=== PATIENT | male | born 1965 | race Two or more races ===

== ENCOUNTER 2024-02-29 21:15 | Emergency (ER) | payer MEDICAID, OTHER ==
[~2024-02-29] VITALS: Ht 182.9 cm; Wt 140.6 kg
[2024-02-29 21:45] VITALS: PULSE 89; RESP 36; TEMP 97.8; O2SAT 92
[2024-02-29 23:00] LABS: Basophils # (auto) 0 10 ^3/uL (0-0.2); Basophils % (auto) 0.8 % (0.0-2.0); Eosinophils # (auto) 0 10 ^3/uL (0-0.8); Eosinophils % (auto) 0.8 % (0.0-7.0); Hematocrit 40.9 % (41.0-53.0); Hemoglobin 13.1 g/dL (13.5-17.5); Lymphocytes # (auto) 1.6 10 ^3/uL (0.4-5.4); Lymphocytes % (auto) 29.1 % (10.0-50.0); Mean Corpuscular Hemoglobin 29.9 pg (28.0-32.0); Mean Corpuscular Volume 93.4 fL (80.0-100.0); Monocytes # (auto) 0.5 10 ^3/uL (0-1.3); Monocytes % (auto) 8.8 % (0.0-12.0); Neutrophils # (auto) 3.4 10 ^3/uL (1.6-8.6); Neutrophils % (auto) 60.5 % (37.0-80.0); Nucleated Red Blood Cells % 0.1 %; Red Blood Cells 4.38 10^6/uL (4.5-5.90); Red Cell Distribution Width 14.9 % (11.8-14.3); White Blood Cell 5.6 10^3/uL (4.4-10.8)
[2024-02-29 23:09] LABS: Chloride 106 mmol/L (98-107); Potassium 4.2 mmol/L (3.5-5.1); Sodium 140 mmol/L (136-145)
[2024-02-29 23:10] LABS: Anion Gap 4 (5-15); Calcium 10.5 mg/dL (8.7-10.4); Carbon Dioxide 30 mmol/L (20-30)
[2024-02-29 23:15] LABS: BUN/Creatinine Ratio 8.5 (10.0-20.0); Blood Urea Nitrogen 8 mg/dL (9-23); Glucose 110 mg/dL (74-106)
[2024-03-01] MEDS: IOHEXOL 350 MG/ML 100ML IJ ONE (00:34)
[2024-03-01] MEDS: HYDROcodone-ACET 10/325MG TAB PO ONE (04:21)
[2024-03-01 07:20] VITALS: PULSE 81; RESP 20; O2SAT 94
[2024-03-01 10:00] VITALS: BP 138/83; PULSE 105; RESP 24; O2SAT 94
== END 2024-03-01 11:00 | disposition home or self-care (01) ==
LOC: ER 21:15 → EDBD 21:15 → ER 03-01 11:00
DX: R06.00 Dyspnea, unspecified (principal); I11.0 Hypertensive heart disease with heart failure; I50.9 Heart failure, unspecified; J44.9 Chronic obstructive pulmonary disease, unspecified; E11.9 Type 2 diabetes mellitus without complications; E78.5 Hyperlipidemia, unspecified; I25.2 Old myocardial infarction; Z88.5 Allergy status to narcotic agent; Z86.16 Personal history of COVID-19
CPT/HCPCS: 36415; 71045; 71275; 80048; 83880; 84484; 85025; 85379; 93005; 99285; Q9967

== ENCOUNTER 2025-03-02 12:52 | Emergency (ER) | payer MEDICAID ==
--- NOTE | 2025-03-02 13:52 | DVH ---
CLINICAL INDICATION: INJURY TO THUMB TECHNIQUE: XY R HAND 3 VIEW XRAY Comparison: None FINDINGS/IMPRESSION: 1. No acute fracture or dislocation of the right hand. 2. Old healed fracture of the right 5th metacarpal neck. 3. 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 4. 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
[2025-03-02 14:27] VITALS: BP 98/65; PULSE 89; RESP 18; TEMP 98.2; O2SAT 94
--- NOTE | 2025-03-02 14:41 | ED.PDOC ---
Musculoskeletal HPI Comments 59-year-old male presents with a chief complaint of right thumb pain s/p fall last night. Patient states that he fell while in the shower and injured his right thumb. Patient is able to move his thumb, but states that it is painful to do so. Patient reports that he has been taking ibuprofen at home for the pain and has been taking 300mg tablets. Chief Complaint: Upper Extremity Time Seen by MD: 13:21 Reviewed Notes: Nurses Notes, Medications, Allergies Allergies: Coded Allergies: Morphine (Verified Allergy, Unknown, 02/29/24) Information Source: Patient Past Medical History PAST MEDICAL HISTORY: CHF, COPD, DM, High Lipids, HTN, [place] Surgical History: Denies all surgeries Family History Family History: Unknown Social History Smoker: Non-Smoker Alcohol: Denies ETOH Use Drugs: Denies Drug Use Lives In: Home Constitutional: denies: chills, diaphoresis, fatigue, fever, malaise, sweats, weakness, others EENTM: denies: blurred vision, double vision, ear bleeding, ear discharge, ear drainage, ear pain, ear ringing, eye pain, eye redness, hearing loss, mouth pain, mouth swelling, nasal discharge, nose bleeding, nose congestion, nose pain, photophobia, tearing, throat pain, throat swelling, voice changes, others Respiratory: denies: cough, hemoptysis, orthopnea, SOB at rest, shortness of breath, SOB with excertion, stridor, wheezing, others Cardiovascular: denies: chest pain, dizzy spells, diaphoresis, Dyspnea on exertion, edema, irregular heart beat, left arm pain, lightheadedness, palpitations, PND, syncope, others Gastrointestinal: denies: abdomen distended, abdominal pain, blood streaked bowels, constipated, diarrhea, dysphagia, difficulty swallowing, hematemesis, melena, nausea, poor appetite, poor fluid intake, rectal bleeding, rectal pain, vomiting, others Genitourinary: denies: burning, dysuria, flank pain, frequency, hematuria, incontinence, penile discharge, penile sore, pain, testicle pain, testicle swelling, urgency, others Neurological: denies: dizziness, fainting, headache, left sided numbness, left sided weakness, numbness, paresthesia, pre-existing deficit, right sided numbness, right sided weakness, seizure, speech problems, tingling, tremors, weakness, others Musculoskeletal: reports: muscle pain; denies: back pain, gout, joint pain, joint swelling, muscle stiffness, neck pain, others Integumetry: denies: bruises, change in color, change in hair/nails, dryness, laceration, lesions, lumps, rash, wounds, others Allergic/Immunocompromised: denies: Difficulty Healing, Frequent Infections, Hives, Itching, others Hematologic/Lymphatic: denies: anemia, blood clots, easy bleeding, easy bruising, swollen glands, others Endocrine: denies: excessive hunger, excessive sweating, excessive thirst, excessive urination, flushing, intolerance to cold, intolerance to heat, unexplained weight gain, unexplained weight loss, others Psychiatric: denies: anxiety, bipolar disorder, depression, hopeless, panic disorder, schizophrenia, sleepless, suicidal, others All Other Systems: Reviewed and Negative Physical Exam General Appearance: No Apparent Distress, Normal HEENT: Normal ENT Inspection, Pharynx Normal, TMs Normal Neck: Full Range of Motion, Non-Tender, Normal, Normal Inspection Respiratory: Chest Non-Tender, Lungs Clear, No Accessory Muscle Use, No Respiratory Distress, Normal Breath Sounds Cardiovascular: No Edema, No JVD, No Murmur, No Gallop, Normal Peripheral Pulses, Regular Rate/Rhythm Breast Exam: Deferred Gastrointestinal: No Organomegaly, Non Tender, No Pulsatile Mass, Normal Bowel Sounds, Soft Genitalia: Deferred Pelvic: Deferred Rectal: Deferred Extremities: No calf tenderness, Normal capillary refill, Normal inspection, Normal range of motion, No pedal edema, Other (NO DEFORMITY, LOCALIZED TTP TO 1ST MCP, FULL ROM, NEUROVASCULARLY INTACT) Musculoskeletal : Apperance: Normal Neurologic: Alert, label operator II-XII nml as Tested, No Motor Deficits, Normal Affect, Normal Mood, No Sensory Deficits Cerebellar Function: Normal Reflexes: Normal Skin: Dry, Normal Color, Warm Lymphatic: No Adenopathy Was a procedure done? Was a procedure done?: No Differential Diagnosis EXT Differential Diagnosis: Fracture, Sprain, Dislocation X-Ray, Labs, Meds, VS Vital Signs Date Time Temp Pulse Resp B/P (MAP) Pulse Ox O2 Delivery O2 Flow Rate FiO2 03/02/25 14:27 89 18 94 Room Air 03/02/25 14:27 98.2 89 18 98/65 (69) 94 98.2 Current Medications Medications (Trade) Dose Ordered Sig/Carrie Route Start Time Stop Time Status Last Admin Ketorolac Tromethamine (Toradol Injection) 60 mg ONCE ONCE IM 03/02/25 14:45 03/02/25 14:46 DC 03/02/25 15:03 X-Ray, Labs, Meds, VS Comment 59-year-old male presents with a chief complaint of right thumb pain s/p fall last night. Patient arrives alert and oriented, ABC's intact, afebrile, vital signs stable, saturating well in room air Diagnostic imaging ordered by me and results interpreted by radiology : Results negative for an acute fracture. There was no signs of arterial nerve damage. Neurovascular sensation intact. Radial pulses 2+ In the ER the patient was treated with Toradol x1 with no adverse reactions On reevaluation, patient had symptomatic improvement. Patient is stable for discharge at this time. External notes reviewed. Test results and diagnostic imaging interpreted. All diagnostic findings, discharge care, education and instructions provided Follow-up with PCP in 2 to 3 days Patient verbalized understanding and agreed to treatment plan Vital signs stable, afebrile, no acute distress noted Patient ambulatory with strong steady gait Advised to return precautions for any new or worsening symptoms, return to ER immediately for re-evaluation Patient is aware that the purpose of this visit was for an acute medical emergency requiring emergent stabilization. Chronic conditions, including malignancies have not been ruled out. Patient is instructed to follow up with PCP as directed and discharge instructions for continued care and workup. If unable to arrange follow-up, patient is to return to the emergency department for reassessment. Patient (parent or legal guardian if applicable) was given verbal and written discharge instructions and acknowledges understanding. Additional MDM Review of External, Non-ED records: External records reviewed. Discussion with independent historian (EMS, family) history obtained from the patient/parents (if applicable) at bedside Chronic conditions affecting care: None Social determinants of health affecting care: None Consideration of admission (observation or admission): I considered escalation of care to admission for this patient, however given the reassuring workup, the patient is safe for outpatient management. Time of 1ST Reevaluation: 14:40 Reevaluation 1ST: Improved Patient Education/Counseling: Diagnosis, Treatment, Prognosis Family Education/Counseling: No Family Present Departure 1 Departure Time of Disposition: 14:40 Impression: Primary Impression: Hand pain Qualified Codes: M79.641 - Pain in right hand Disposition: HOME / SELF CARE / HOMELESS Condition: Stable Discharged With: Self Critical Care Note Critical Care Time?: No Stability Stability form required: No Heart Score Heart Score: Heart Score Response (Comments) Value History N/A 0 EKG N/A 0 Age N/A 0 Risk Factors N/A 0 Troponin N/A 0 Total 0 I personally scribed for SANNA GOMES NP ([email or web address]) on 03/02/25 at 14:51. Hallie ctronically submitted by Javier Bradshaw ([email or web address]). SANNA GOMES NP Mar 02, 2025 14:41
[2025-03-02] MEDS: KETOROLAC TROMETH 60MG/2ML VIAL IM ONE (15:03)
== END 2025-03-02 15:03 | disposition home or self-care (01) ==
LOC: ER 12:52
DX: M79.641 Pain in right hand (principal); M79.644 Pain in right finger(s); I50.9 Heart failure, unspecified; I25.2 Old myocardial infarction; I11.0 Hypertensive heart disease with heart failure; E11.9 Type 2 diabetes mellitus without complications; J44.9 Chronic obstructive pulmonary disease, unspecified; E78.5 Hyperlipidemia, unspecified; Z88.5 Allergy status to narcotic agent
CPT/HCPCS: 73130; 96372; 99283; J1885

== ENCOUNTER 2025-04-05 13:05 | Inpatient (IN) | payer MEDICAID ==
[~2025-04-05] VITALS: Ht 172.7 cm; Wt 140.5 kg
--- NOTE | 2025-04-05 13:34 | ED.PDOC ---
General HPI Comments 59 y.o male with PMHx of DM, MIx 3, HTN, HLD, sleep apnea, CHF, seizures and stage 3 CKD, presents to the ED via EMS for a chief complaint of suprapubic pain radiating down, associated with excessive thirst, dysuria and frequency. Patient describes pain as a burning sensation that is constant with no alleviating factors. Patient denies any hematuria, fever, chills, weakness, chest pain, nausea, vomiting or diarrhea. Time Seen by MD: 13:28 Reviewed notes: Nurses Notes, Medications, Allergies Allergies: Coded Allergies: Morphine (Verified Allergy, Unknown, 02/29/24) Home Meds Reported Medications Omeprazole Magnesium (Omeprazole) 20 Mg Tab, 20 MG PO DAILY, TAB 04/05/25 Amlodipine Besylate (Amlodipine Besylate) 10 Mg Tab, 1 TAB PO DAILY, #30 TAB 5 Refills 04/05/25 Metoprolol Tartrate (Metoprolol Tartrate) 50 Mg Tab, 50 MG PO DAILY, TAB 04/05/25 Lisinopril (Lisinopril) 10 Mg Tab, 10 MG PO DAILY, TAB 04/05/25 Sertraline Hcl (Sertraline Hcl) 100 Mg Tab, 1 TAB PO DAILY, #90 TAB 1 Refill 04/05/25 Canagliflozin (INVOKANA) 300 Mg Tab, 300 MG OR DAILY, TAB 04/05/25 Furosemide (Lasix) 20 Mg Tb, 1 TAB PO DAILY, #90 TAB 1 Refill 04/05/25 Gabapentin (Gabapentin) 300 Mg Cap, 1 CAP PO TID 04/05/25 Aspirin (Aspirin Low Dose) 81 Mg Tab, 1 TAB PO DAILY 04/05/25 Atorvastatin Calcium (ATORVASTATIN CALCIUM) 40 Mg Tab, 1 TAB PO HS 04/05/25 Information Source: Patient Mode of Arrival: Ambulatory Severity: Moderate Timing: Days Duration: Since onset Onset: Spontaneous Symptoms: Dysuria, Frequency, Urgency History of: None Location: Suprapubic Location male: R Scrotum, L Scrotum Penile discharge: None Modifying factors: None associated signs and symptoms: Abdominal Pain, Dysuria, Frequency Past Medical History PAST MEDICAL HISTORY: CHF, COPD, DM, High Lipids, HTN, [place] Surgical History: Denies all surgeries Family History Family History: Unknown Social History Smoker: Non-Smoker Alcohol: Denies ETOH Use Drugs: Denies Drug Use Lives In: Home Constitutional: denies: chills, diaphoresis, fatigue, fever, malaise, sweats, weakness, others EENTM: denies: blurred vision, double vision, ear bleeding, ear discharge, ear drainage, ear pain, ear ringing, eye pain, eye redness, hearing loss, mouth pain, mouth swelling, nasal discharge, nose bleeding, nose congestion, nose pain, photophobia, tearing, throat pain, throat swelling, voice changes, others Respiratory: denies: cough, hemoptysis, orthopnea, SOB at rest, shortness of breath, SOB with excertion, stridor, wheezing, others Cardiovascular: denies: chest pain, dizzy spells, diaphoresis, Dyspnea on exertion, edema, irregular heart beat, left arm pain, lightheadedness, palpitations, PND, syncope, others Gastrointestinal: reports: abdominal pain; denies: abdomen distended, blood streaked bowels, constipated, diarrhea, dysphagia, difficulty swallowing, hematemesis, melena, nausea, poor appetite, poor fluid intake, rectal bleeding, rectal pain, vomiting, others Genitourinary: reports: burning, dysuria, frequency, pain; denies: flank pain, hematuria, incontinence, penile discharge, penile sore, testicle pain, testicle swelling, urgency, others Neurological: denies: dizziness, fainting, headache, left sided numbness, left sided weakness, numbness, paresthesia, pre-existing deficit, right sided numbness, right sided weakness, seizure, speech problems, tingling, tremors, weakness, others Musculoskeletal: denies: back pain, gout, joint pain, joint swelling, muscle pain, muscle stiffness, neck pain, others Allergic/Immunocompromised: denies: Difficulty Healing, Frequent Infections, Hives, Itching, others Endocrine: reports: excessive thirst; denies: excessive hunger, excessive sweating, excessive urination, flushing, intolerance to cold, intolerance to heat, unexplained weight gain, unexplained weight loss, others Psychiatric: denies: anxiety, bipolar disorder, depression, hopeless, panic disorder, schizophrenia, sleepless, suicidal, others All Other Systems: Reviewed and Negative Physical Exam General Appearance: Moderate Distress, Obese HEENT: Normal ENT Inspection, Pharynx Normal, TMs Normal Neck: Full Range of Motion, Non-Tender, Normal, Normal Inspection Respiratory: Chest Non-Tender, Lungs Clear, No Accessory Muscle Use, No Respir atory Distress, Normal Breath Sounds Cardiovascular: No Edema, No JVD, No Murmur, No Gallop, Normal Peripheral Pulses, Regular Rate/Rhythm Breast Exam: Deferred Gastrointestinal: No Organomegaly, Non Tender, No Pulsatile Mass, Normal Bowel Sounds, Soft Genitalia: Deferred Pelvic: Deferred Rectal: Deferred Extremities: No calf tenderness, Normal capillary refill, No pedal edema Musculoskeletal : Apperance: Normal Neurologic: Alert, library page II-XII nml as Tested, Motor Weakness, Normal Affect, Normal Mood, No Sensory Deficits Cerebellar Function: Normal Reflexes: Normal Skin: Dry, Normal Color, Warm Lymphatic: No Adenopathy Was a procedure done? Was a procedure done?: No Differential Diagnosis Kidney stone (Female): N/A Urinary Problem (Male): Epididymitis, Prostatitis, Plelonephritis, Renal Failure, Urethritis, Urolithiasis, UTI X-Ray, Labs, Meds, VS Vital Signs Date Time Temp Pulse Resp B/P (MAP) Pulse Ox O2 Delivery O2 Flow Rate FiO2 04/05/25 16:38 100 20 114/69 (84) 96 04/05/25 13:51 Nasal Cannula* 6 44 04/05/25 13:51 98.6 100 18 128/64 (85) 96 98.6 04/05/25 13:31 98.7 110 16 128/64 (85) 96 98.7 Lab Test 04/05/25 16:20 04/05/25 14:25 Range/Units Urine Color Colorless Yellow Urine Clarity Clear Clear Urine pH 5.5 5.0-9.0 Urine Specific [place] 1.032 1.001-1.035 Urine Protein Negative Negative Urine Ketones 1+ H Negative Urine Blood 3+ H Negative /uL Urine Nitrite Negative Negative Urine Bilirubin Negative Negative Urine Urobilinogen Normal Negative mg/dL Urine Leukocyte Esterase Negative Negative /uL Urine RBC 115 0 - 3 /hpf Urine Microscopic WBC 7 H 0-3 /HPF Urine Squamous Epithelial Cells Few <5 /hpf Urine Bacteria Few H None Seen /hpf Urine Glucose 4+ H Normal mg/dL White Blood Count 12.7 H 4.4-10.8 10^3/uL Red Blood Count 4.71 4.5-5.90 10^6/uL Hemoglobin 13.9 13.5-17.5 g/dL Hematocrit 42.5 41.0-53.0 % Mean Corpuscular Volume 90.1 80.0-100.0 fL Mean Corpuscular Hemoglobin 29.5 28.0-32.0 pg Mean Corpuscular Hemoglobin Concent 32.8 32.0-36.0 g/dL Red Cell Distribution Width 14.1 11.8-14.3 % Platelet Count 239 140-450 10^3/uL Mean Platelet Volume 8.6 6.9-10.8 fL Neutrophils (%) (Auto) 87.2 H 37.0-80.0 % Lymphocytes (%) (Auto) 5.7 L 10.0-50.0 % Monocytes (%) (Auto) 6.4 0.0-12.0 % Eosinophils (%) (Auto) 0.2 0.0-7.0 % Basophils (%) (Auto) 0.5 0.0-2.0 % Neutrophils # (Auto) 11.1 H 1.6-8.6 10 ^3/uL Lymphocytes # (Auto) 0.7 0.4-5.4 10 ^3/uL Monocytes # (Auto) 0.8 0-1.3 10 ^3/uL Eosinophils # (Auto) 0 0-0.8 10 ^3/uL Basophils # (Auto) 0.1 0-0.2 10 ^3/uL Nucleated Red Blood Cells 0.1 % Sodium Level 140 136-145 mmol/L Potassium Level 4.0 3.5-5.1 mmol/L Chloride Level 104 98-107 mmol/L Carbon Dioxide Level 24 20-31 mmol/L Anion Gap 12 5-15 Blood Urea Nitrogen 11 9-23 mg/dL Creatinine 1.34 H 0.700-1.30 mg/dL Glomerular Filtration Rate Calc 61 >90 mL/min BUN/Creatinine Ratio 8.2 L 10.0-20.0 Serum Glucose 280 H 74-106 mg/dL Hemoglobin A1c Pending Calcium Level 10.7 H 8.7-10.4 mg/dL Current Medications Medications (Trade) Dose Ordered Sig/Carrie Route Start Time Stop Time Status Last Admin Sodium Chloride 500 ml @ 500 mls/hr Q1H ONCE IV 04/05/25 13:30 04/05/25 14:29 DC 04/05/25 15:15 Exam: CT CT AB PEL WO CON-NO ORAL OR IV IMPRESSION: Hepatic steatosis. Hepatomegaly. Moderate skin thickening of the lower abdomen. Moderate fat containing umbilical hernia. The patient was given normal saline at a 500 cc bolus The chemistry panel shows a creatinine of 1.34 The patient's CBC shows an elevated white blood cell count of 12.7 The urine test is positive for UTI as well as glucose The patient was on Rocephin g IV piggyback Images Reviewed?: Images reviewed and evaluated by me Time of 1ST Reevaluation: 13:34 Reevaluation 1ST: Unchanged Patient Education/Counseling: Diagnosis, Treatment, Prognosis Family Education/Counseling: No Family Present SEPSIS Sepsis Screen Physician Orders Heplock Iv (04/05/25 13:30) Candy Cutter Machine (04/05/25 13:30) Blood Pressure (04/05/25 13:30) Pulse Oximetry (04/05/25 13:30) Ct Ab Pel Wo Con-No Oral Or Iv (04/05/25 13:30) Ceftriaxone 1gm/50ml D5w (Rocephin) (04/06/25 09:00) Sodium Chloride 0.9% (04/05/25 17:30) Vital Signs Date Time Temp Pulse Resp B/P (MAP) Pulse Ox O2 Delivery O2 Flow Rate FiO2 04/05/25 16:38 100 20 114/69 (84) 96 04/05/25 13:51 Nasal Cannula* 6 44 04/05/25 13:51 98.6 100 18 128/64 (85) 96 98.6 04/05/25 13:31 98.7 110 16 128/64 (85) 96 98.7 Laboratory Tests Test 04/05/25 14:25 White Blood Count 12.7 10^3/uL (4.4-10.8) H Medications Medications Dose Ordered Sig/Carrie Route Start Time Stop Time Status Last Admin Dose Admin Sodium Chloride 500 ml @ 500 mls/hr Q1H ONCE IV 04/05/25 13:30 04/05/25 14:29 DC 04/05/25 15:15 Departure 1 Departure Time of Disposition: 18:54 Impression: Primary Impression: Intractable abdominal pain Additional Impressions: UTI (urinary tract infection) Qualified Codes: N30.00 - Acute cystitis without hematuria Generalized weakness Disposition: ADMITTED INPATIENT Admit to: Med Surg Condition: Fair Critical Care Note Critical Care Time?: No Stability Stability form required: Yes Unstable for transfer: ED Physician Assesment (Clinical assesment) I personally scribed for KODAK PENDLETON MD ([email or web address]) on 04/05/25 at 13:34. Electronically submitted by Bindu Mary ([facility]). I personally scribed for KODAK PENDLETON MD ([email or web address]) on 04/05/25 at 14:54. Electronically submitted by Bindu Mary ([facility]). KODAK PENDLETON MD Apr 05, 2025 13:34
--- NOTE | 2025-04-05 14:16 | DVH ---
Exam: CT CT AB PEL WO CON-NO ORAL OR IV History: pain Comparison Study: None Technique: Multidetector spiral CT of the abdomen was performed from lung bases to pubic symphysis. I maging was performed without IV contrast. Axial, coronal and sagittal multiplanar reformats were obta ined from the axial data set by the technologist. Radiation Dose : 1. Abdomen/Pelvis: CTDIvol 25.5 mGy, DLP 1349.5 mGy*cm. Findings: Evaluation of solid organs is limited due to lack of intravenous contrast use. Lung Bases: Dependent atelectasis. Liver: Hepatic steatosis. Hepatomegaly. Gallbladder and Biliary Tree: Unremarkable Spleen: Unremarkable Pancreas: The pancreas is grossly normal in appearance. Adrenal Glands: Unremarkable Kidneys: Kidneys are grossly normal without calculi or hydronephrosis. Left upper lobe cyst measures 3.0 cm. Bladder: Grossly unremarkable for degree of distention. Bowel: The stomach is grossly normal in appearance. Small bowel and colon are normal in caliber and d istribution. Normal appendix is visualized in the right lower quadrant without findings of appendicit is. Ascites: Absent Lymphadenopathy: No mesenteric, retroperitoneal or periportal lymphadenopathy. Abdominal Wall and Mesentery: Moderate fat containing umbilical hernia. Moderate skin thickening of the lower abdomen. Vasculature: The visualized abdominal aorta is normal in size and caliber. Evaluation of abdominal a nd pelvic vessels is limited due to lack of intravenous contrast. Pelvic Organs: Unremarkable Musculoskeletal: No aggressive focal bony lesions, acute fractures or dislocation. IMPRESSION: Hepatic steatosis. Hepatomegaly. Moderate skin thickening of the lower abdomen. Moderate fat containing umbilical hernia.
[2025-04-05 14:40] LABS: Hematocrit 42.5 % (41.0-53.0); Hemoglobin 13.9 g/dL (13.5-17.5); Mean Corpuscular Hemoglobin 29.5 pg (28.0-32.0); Mean Corpuscular Volume 90.1 fL (80.0-100.0); Nucleated Red Blood Cells % 0.1 %
[2025-04-05 14:52] LABS: Chloride 104 mmol/L (98-107); Potassium 4.0 mmol/L (3.5-5.1); Sodium 140 mmol/L (136-145)
[2025-04-05 14:53] LABS: Anion Gap 12 (5-15); Carbon Dioxide 24 mmol/L (20-31)
[2025-04-05 14:54] LABS: Calcium 10.7 mg/dL (8.7-10.4)
[2025-04-05 14:58] LABS: BUN/Creatinine Ratio 8.2 (10.0-20.0); Blood Urea Nitrogen 11 mg/dL (9-23)
[2025-04-05 15:00] LABS: Glucose 280 mg/dL (74-106)
[2025-04-05] MEDS: SODIUM CHLORIDE 0.9% 500 ML IV ONE (15:15)
[2025-04-05 16:53] LABS: Urine Protein, UAD Negative (Negative)
[2025-04-05] MEDS: HYDROmorphone HCL 2 MG/ML VL/or syr IV ONE (17:28)
[2025-04-05] MEDS: ONDANSETRON HCL 4 MG/2 ML VIAL IV ONE (17:28)
[2025-04-05] MEDS ORDERED: ONDANSETRON HCL 4 MG/2 ML VIAL IV PRN (17:30)
[2025-04-05] MEDS: SODIUM CHLORIDE 0.9% 1,000 ML IV ONE (17:30)
[2025-04-05] MEDS ORDERED: DOCUSATE SOD 100 MG CAP PO PRN (17:30)
[2025-04-05] MEDS ORDERED: ACETAMINOPHEN 325 MG TAB PO PRN (17:30)
[2025-04-05] MEDS ORDERED: GABA-1250 PO (17:37)
[2025-04-05] MEDS ORDERED: CANA300T OR (17:37)
[2025-04-05] MEDS ORDERED: ASPI-325 PO (17:37)
[2025-04-05] MEDS ORDERED: ATOR40TA52 PO (17:37)
[2025-04-05] MEDS ORDERED: FURO1TAB33 PO (17:37)
[2025-04-05] MEDS ORDERED: SERT-160 PO (17:37)
[2025-04-05] MEDS ORDERED: METO-158 PO (17:37)
[2025-04-05] MEDS ORDERED: OMEP-434 PO (17:37)
[2025-04-05] MEDS ORDERED: LISI10TA34 PO (17:37)
[2025-04-05] MEDS ORDERED: AMLO1TAB23 PO (17:37)
[2025-04-05] MEDS ORDERED: DEXTROSE (50%) 50ML SYRG IV PRN (17:45)
--- NOTE | 2025-04-05 17:56 | DVHHP2 ---
History of Present Illness Reason for Visit: Pain with urination History of Present Illness Leonardo Bustillo is a 59-year-old male with past medical history of sleep apnea, diabetes, hypertension, hyperlipidemia, CHF, sleep apnea, seizures, COPD, home oxygen use, and chronic kidney diseases, who came to the hospital for painful urination. Patient states he has been experiencing severe pelvic pain, dysuria, thirst, frequency, and incontinence for the past couple of days prompting him to come to the hospital. 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), Total knee replacement (left) Smoke: No ALCOHOL: none Drugs: None Lives: with Family Domestic Violence: Neg Review of Systems Constitutional: Yes: Malaise; No: Fever, Chills, Sweats, Weakness, Other Eyes: No: Pain, Vision change, Conjunctivae inflammation, Eyelid inflammation, Other, Redness ENT: No: Ear pain, Ear discharge, Nose pain, Nose discharge, Nose congestion, Mouth pain, Mouth swelling, Throat pain, Throat swelling, Other Respiratory: No: Cough, Dry, Shortness of breath, SOB with excertion, Wheezing, Hemoptysis, Pleuritic Pain, Sputum, Wheezing, Other Cardiovascular: No: Chest Pain, Palpitations, Orthopnea, Paroxysmal Noc. Dyspnea, Edema, Lt Headedness, Other Gastrointestinal: No: Nausea, Vomiting, Abdominal Pain, Diarrhea, Constipation, Melena, Hematochezia, Other Genitourinary: Dysuria, Frequency, Incontinence; No Hematuria, No Retention, No Other Musculoskeletal: No: other, neck pain, shoulder pain, arm pain, back pain, hand pain, leg pain, foot pain Skin: No: Rash, Lesions, Jaundice, Bruising, Other Neurological: No: Weakness, Numbness, Incoordination, Change in speech, Confusion, Seizures, Other Allergies: Coded Allergies: Morphine (Verified Allergy, Unknown, 02/29/24) Medications Current Medications Medications Dose Ordered Sig/Carrie Route Start Time Stop Time Status Last Admin Dose Admin Ceftriaxone Sodium 50 ml @ 100 mls/hr DAILY@09 IV 04/06/25 09:00 UNV Acetaminophen/ Hydrocodone Bitart 1 tab Q4HP PRN PO 04/05/25 17:30 UNV Ondansetron HCl 4 mg Q4HP PRN IV 04/05/25 17:30 UNV Docusate Sodium 100 mg BIDPRN PRN PO 04/05/25 17:30 UNV Acetaminophen 650 mg Q6HP PRN PO 04/05/25 17:30 UNV Aspirin 81 mg DAILY PO 04/06/25 10:00 UNV Furosemide 20 mg DAILY PO 04/06/25 10:00 UNV Gabapentin 300 mg TID PO 04/05/25 22:00 UNV Metoprolol Tartrate 50 mg DAILY PO 04/06/25 10:00 UNV Patient Own Medication 1 tab DAILY PO 04/06/25 10:00 UNV Patient Own Medication 1 tab HS PO 04/05/25 22:00 UNV Patient Own Medication 300 mg DAILY OR 04/06/25 10:00 UNV Patient Own Medication 10 mg DAILY PO 04/06/25 10:00 UNV Patient Own Medication 20 mg DAILY PO 04/06/25 10:00 UNV Patient Own Medication 1 tab DAILY PO 04/06/25 10:00 UNV Exam Vital Signs Vital Signs Date Time Temp Pulse Resp B/P (MAP) Pulse Ox O2 Delivery O2 Flow Rate FiO2 04/05/25 16:38 100 20 114/69 (84) 96 04/05/25 13:51 Nasal Cannula* 6 44 04/05/25 13:51 98.6 98.6 General Appearance: Alert, Oriented X3, mild distress HEENT: Atraumatic, PERRLA Respiratory: Clear to auscultation, Normal air movement Cardiovascular: Regular rate, Normal S1, Normal S2, No murmurs Abdominal: Normal bowel sounds, Soft, Other (pelvic pain) Extremities: No clubbing, No cyanosis, No edema, Normal pulses Skin: No rashes, No breakdown, No significant lesion Neuro: Normal gait, Normal speech, Strength at 5/5 X4 ext Psych/Mental Status: Mental status NL, Mood NL Labs/Xrays Labs Test 04/05/25 16:20 04/05/25 14:25 Range/Units Urine Color Colorless Yellow Urine Clarity Clear Clear Urine pH 5.5 5.0-9.0 Urine Specific [place] 1.032 1.001-1.035 Urine Protein Negative Negative Urine Ketones 1+ H Negative Urine Blood 3+ H Negative /uL Urine Nitrite Negative Negative Urine Bilirubin Negative Negative Urine Urobilinogen Normal Negative mg/dL Urine Leukocyte Esterase Negative Negative /uL Urine RBC 115 0 - 3 /hpf Urine Microscopic WBC 7 H 0-3 /HPF Urine Squamous Epithelial Cells Few <5 /hpf Urine Bacteria Few H None Seen /hpf Urine Glucose 4+ H Normal mg/dL White Blood Count 12.7 H 4.4-10.8 10^3/uL Red Blood Count 4.71 4.5-5.90 10^6/uL Hemoglobin 13.9 13.5-17.5 g/dL Hematocrit 42.5 41.0-53.0 % Mean Corpuscular Volume 90.1 80.0-100.0 fL Mean Corpuscular Hemoglobin 29.5 28.0-32.0 pg Mean Corpuscular Hemoglobin Concent 32.8 32.0-36.0 g/dL Red Cell Distribution Width 14.1 11.8-14.3 % Platelet Count 239 140-450 10^3/uL Mean Platelet Volume 8.6 6.9-10.8 fL Neutrophils (%) (Auto) 87.2 H 37.0-80.0 % Lymphocytes (%) (Auto) 5.7 L 10.0-50.0 % Monocytes (%) (Auto) 6.4 0.0-12.0 % Eosinophils (%) (Auto) 0.2 0.0-7.0 % Basophils (%) (Auto) 0.5 0.0-2.0 % Neutrophils # (Auto) 11.1 H 1.6-8.6 10 ^3/uL Lymphocytes # (Auto) 0.7 0.4-5.4 10 ^3/uL Monocytes # (Auto) 0.8 0-1.3 10 ^3/uL Eosinophils # (Auto) 0 0-0.8 10 ^3/uL Basophils # (Auto) 0.1 0-0.2 10 ^3/uL Nucleated Red Blood Cells 0.1 % Sodium Level 140 136-145 mmol/L Potassium Level 4.0 3.5-5.1 mmol/L Chloride Level 104 98-107 mmol/L Carbon Dioxide Level 24 20-31 mmol/L Anion Gap 12 5-15 Blood Urea Nitrogen 11 9-23 mg/dL Creatinine 1.34 H 0.700-1.30 mg/dL Glomerular Filtration Rate Calc 61 >90 mL/min BUN/Creatinine Ratio 8.2 L 10.0-20.0 Serum Glucose 280 H 74-106 mg/dL Calcium Level 10.7 H 8.7-10.4 mg/dL Exam: CT CT AB PEL WO CON-NO ORAL OR IV Findings: Evaluation of solid organs is limited due to lack of intravenous contrast use. Lung Bases: Dependent atelectasis. Liver: Hepatic steatosis. Hepatomegaly. Gallbladder and Biliary Tree: Unremarkable Spleen: Unremarkable Pancreas: The pancreas is grossly normal in appearance. Adrenal Glands: Unremarkable Kidneys: Kidneys are grossly normal without calculi or hydronephrosis. Left upp er lobe cyst measures 3.0 cm. Bladder: Grossly unremarkable for degree of distention. Bowel: The stomach is grossly normal in appearance. Small bowel and colon are normal in caliber and distribution. Normal appendix is visualized in the right lower quadrant without findings of appendicitis. Ascites: Absent Lymphadenopathy: No mesenteric, retroperitoneal or periportal lymphadenopathy. Abdominal Wall and Mesentery: Moderate fat containing umbilical hernia. Moderate skin thickening of the lower abdomen. Vasculature: The visualized abdominal aorta is normal in size and caliber. Evaluation of abdominal and pelvic vessels is limited due to lack of intravenous contrast. Pelvic Organs: Unremarkable Musculoskeletal: No aggressive focal bony lesions, acute fractures or dislocation. IMPRESSION: Hepatic steatosis. Hepatomegaly. Moderate skin thickening of the lower abdomen. Moderate fat containing umbilical hernia. SEPSIS Sepsis Screen Date sepsis recognized/suspect: Apr 05, 2025 Time Sepsis recognized/suspect: 1311 Recent Procedure: No On Antibiotic Therapy: No Respiratory Rate >20: No Heart Rate >90: Yes Temp<36 C (96.8 F) or >38.3 C: No SBP <90 or MAP <65 mmHG: No New Acute Mental Status Change: No Is the patient on CPAP, BIPAP,: No Physician Orders Heplock Iv (04/05/25 13:30) Ice Cream Chef (04/05/25 13:30) Blood Pressure (04/05/25 13:30) Pulse Oximetry (04/05/25 13:30) Ct Ab Pel Wo Con-No Oral Or Iv (04/05/25 13:30) Ceftriaxone 1gm/50ml D5w (Rocephin) (04/06/25 09:00) Ceftriaxone 1gm/50ml D5w (Rocephin) (04/05/25 17:30) Sodium Chloride 0.9% (04/05/25 17:30) Admit (04/05/25 17:28) Code Status (04/05/25 17:28) Hydrocodone-Acet 5/325mg Tab ([place] /32 (04/05/25 17:30) Ondansetron Hcl (Zofran) (04/05/25 17:30) Docusate Sodium Capsule (Colace Capsule) (04/05/25 17:30) Complete Blood Count (04/06/25 04:00) Comprehensive Metabolic Panel (04/06/25 04:00) Cardiac Diet-2gna,Lofat,Lochol (04/05/25 Dinner) Condition: Serious (04/05/25 17:28) Acetaminophen Tablet (Tylenol Tablet) (04/05/25 17:30) Aspirin Enteric Coated Tablet (Ecotrin E (04/06/25 10:00) Furosemide Tablet (Lasix Tablet) (04/06/25 10:00) Gabapentin Capsule (Neurontin Capsule) (04/05/25 22:00) Metoprolol Tartrate Tablet (Lopressor Ta (04/06/25 10:00) (Nf) Amlodipine Besylate (04/06/25 10:00) (Nf) Atorvastatin Calcium (04/05/25 22:00) (Nf) Canagliflozin (Invokana) (04/06/25 10:00) (Nf) Lisinopril (04/06/25 10:00) (Nf) Omeprazole Magnesium (Omeprazole) (04/06/25 10:00) (Nf) Sertraline Hcl (04/06/25 10:00) Glucose Blood (Accu-Chek Comfort Curve T (04/05/25 22:00) Agressive Insulin Ss (04/06/25 07:00) Bedtime Insulin Ss (04/05/25 22:00) Dextrose 50% Syringe (04/05/25 17:45) Vital Signs Date Time Temp Pulse Resp B/P (MAP) Pulse Ox O2 Delivery O2 Flow Rate FiO2 04/05/25 16:38 100 20 114/69 (84) 96 04/05/25 13:51 Nasal Cannula* 6 44 04/05/25 13:51 98.6 100 18 128/64 (85) 96 98.6 04/05/25 13:31 98.7 110 16 128/64 (85) 96 98.7 Laboratory Tests Test 04/05/25 14:25 White Blood Count 12.7 10^3/uL (4.4-10.8) H Medications Medications Dose Ordered Sig/Carrie Route Start Time Stop Time Status Last Admin Dose Admin Sodium Chloride 500 ml @ 500 mls/hr Q1H ONCE IV 04/05/25 13:30 04/05/25 14:29 DC 04/05/25 15:15 500 MLS/HR Assessment/Plan Assessment/Plan Assessment: Complicated urinary tract infection, Hyperglycemia, Uncontrolled diabetes, Hypertension, Hyperlipidemia, CHF, Sleep apnea, Plan: Admit to Med-Surg, IV hydration, IV antibiotics, A1c, Supplemental oxygen as needed, Home medications reconciled, Plan discussed with: Patient My Orders Orders - INA LUCIANO [employer]ST[employer] BROKER Procedure Category Date Status Time Ceftriaxone 1gm/50ml PHA 04/06/25 Logged D5w (Rocephin) 09:00 Ceftriaxone 1gm/50ml PHA 04/05/25 Logged D5w (Rocephin) 17:30 Sodium Chloride 0.9% PHA 04/05/25 Logged 17:30 Admit ADMIT 04/05/25 Transmitted 17:28 Code Status CODE 04/05/25 Transmitted 17:28 Hydrocodone-Acet PHA 04/05/25 Logged 5/325mg Tab ([place] 17:30 Ondansetron Hcl PHA 04/05/25 Logged (Zofran) 17:30 Docusate Sodium PHA 04/05/25 Logged Capsule (Colace 17:30 Complete Blood Count LAB 04/06/25 Verified 04:00 Comprehensive LAB 04/06/25 Verified Metabolic Panel 04:00 Cardiac DIET 04/05/25 Transmitted Diet-2gna,Lofat,Lochol Dinner Condition: Serious SAL 04/05/25 In Process 17:28 Acetaminophen Tablet PHA 04/05/25 Logged (Tylenol Tablet) 17:30 Aspirin Enteric PHA 04/06/25 Logged Coated Tablet 10:00 Furosemide Tablet PHA 04/06/25 Logged (Lasix Tablet) 10:00 Gabapentin Capsule PHA 04/05/25 Logged (Neurontin Capsule) 22:00 Metoprolol Tartrate PHA 04/06/25 Logged Tablet (Lopressor Ta 10:00 (Nf) Amlodipine PHA 04/06/25 Logged Besylate 10:00 (Nf) Atorvastatin PHA 04/05/25 Logged Calcium 22:00 (Nf) Canagliflozin PHA 04/06/25 Logged (Invokana) 10:00 (Nf) Lisinopril PHA 04/06/25 Logged 10:00 (Nf) Omeprazole PHA 04/06/25 Logged Magnesium (Omeprazole) 10:00 (Nf) Sertraline Hcl PHA 04/06/25 Logged 10:00 Glucose Blood PHA 04/05/25 Transmitted (Accu-Chek Comfort 22:00 Agressive Insulin Ss PHA 04/06/25 Transmitted 07:00 Bedtime Insulin Ss PHA 04/05/25 Transmitted 22:00 Dextrose 50% Syringe PHA 04/05/25 Transmitted 17:45 Date of Service: Apr 05, 2025 Billing Provider: INA LUCIANO Common Visit Codes: [id number] INP/OBS CARE (MOD) INA LUCIANO Apr 05, 2025 17:56
[2025-04-05] MEDS: methylPREDNISolone SOD SUCC 125 MG/2 ML VL IV ONE (19:16)
[2025-04-05] MEDS: cefTRIAXone 1GM/50ML D5W 50 ML IV ONE (19:17)
[2025-04-05 19:27] VITALS: PULSE 99; RESP 22; O2SAT 93
[2025-04-05] MEDS: IPRATROPIUM BROM 0.5 MG/2.5ML INH SOL HHN ONE (19:27)
[2025-04-05] MEDS: ALBUTEROL SULF 2.5 MG/0.5ML(0.5%) NEB SOLN HHN ONE (19:27)
[2025-04-05 19:35] VITALS: PULSE 101; RESP 22; O2SAT 100
[2025-04-05 21:10] VITALS: BP 114/69; PULSE 101; RESP 22; TEMP 98.6; O2SAT 93
[2025-04-05 21:11] VITALS: O2SAT 93
[2025-04-05] MEDS: GABAPENTIN 300 MG CAP PO SCH (21:21)
[2025-04-05] MEDS: ATORVASTATIN 20 MG TAB PO SCH (21:21)
[2025-04-05 21:32] VITALS: PULSE 101; RESP 15; O2SAT 97
[2025-04-05] MEDS: ACCU-CHEK COMFORT CURVE STRIP VI SCH (21:37)
[2025-04-05] MEDS: InsuLIN REG 1unit/0.01ml Soln (100units/ml) SC SCH (21:37)
[2025-04-05] MEDS: HYDROcodone-ACET 5/325MG TAB PO PRN (21:47)
[2025-04-06 01:00] VITALS: BP_SYST 109; BP_SYST 114; BP_DIAS 52; BP_DIAS 69; PULSE 82; PULSE 87; RESP 16; TEMP 98; O2SAT 94; O2SAT 98
[2025-04-06 03:54] VITALS: PULSE 87; O2SAT 95
[2025-04-06 05:00] VITALS: BP 96/59; PULSE 88; RESP 15; TEMP 98.1; O2SAT 100
[2025-04-06] MEDS: InsuLIN REG 1unit/0.01ml Soln (100units/ml) SC SCH (06:10)
[2025-04-06 06:21] VITALS: O2SAT 97
[2025-04-06 07:24] LABS: Hematocrit 36.8 % (41.0-53.0); Hemoglobin 12.4 g/dL (13.5-17.5); Mean Corpuscular Hemoglobin 30.4 pg (28.0-32.0); Mean Corpuscular Volume 90.3 fL (80.0-100.0); Nucleated Red Blood Cells % 0.0 %
[2025-04-06 07:37] LABS: Alanine Aminotransferase 23 U/L (7-40); Albumin 4.6 g/dL (3.2-4.8); Alkaline Phosphatase 99 U/L (46-116); Anion Gap 12 (5-15); BUN/Creatinine Ratio 10.8 (10.0-20.0); Blood Urea Nitrogen 14 mg/dL (9-23); Calcium 10.3 mg/dL (8.7-10.4); Carbon Dioxide 26 mmol/L (20-31); Chloride 102 mmol/L (98-107); Potassium 3.9 mmol/L (3.5-5.1); Sodium 140 mmol/L (136-145); Total Protein 7.1 g/dL (5.7-8.2)
[2025-04-06 07:38] LABS: Bilirubin, Total 0.5 mg/dL (0.2-1.0)
[2025-04-06 07:39] LABS: Glucose 222 mg/dL (74-106)
[2025-04-06 08:40] VITALS: BP 94/46; PULSE 79; RESP 14; TEMP 98; O2SAT 94
[2025-04-06] MEDS: LISINOPRIL 5 MG TAB PO SCH (10:00)
[2025-04-06] MEDS: METOPROLOL SUCCINATE XL 50 MG TAB PO SCH (10:00)
[2025-04-06] MEDS: Canagliflozin (Invokana) 300 MG TABLET PO SCH (10:00)
[2025-04-06] MEDS: cefTRIAXone 1GM/50ML D5W 50 ML IV SCH (10:02)
[2025-04-06] MEDS: PANTOPRAZOLE 40 MG TAB PO SCH (10:03)
[2025-04-06] MEDS: SERTRALINE HCL 50 MG TAB PO SCH (10:03)
[2025-04-06] MEDS: ASPirin-EC 81 mg tab PO SCH (10:03)
[2025-04-06] MEDS: FUROSEMIDE 20 MG TAB PO SCH (10:09)
[2025-04-06 12:21] LABS: Opiate Scree,Urine Neg (NEGATIVE)
[2025-04-06 12:22] LABS: Amphetamine Screen, Urine Neg (NEGATIVE); Barbiturate Scree,Urine Neg (NEGATIVE); Benzodiazephine Screen, Urine Neg (NEGATIVE); Cannabinoid Screen, Urine Neg (NEGATIVE); Cocaine Screen, Urine Neg (NEGATIVE); Phencyclidine Screen, Urine Neg (NEGATIVE)
[2025-04-06 13:00] VITALS: BP 102/63; PULSE 76; RESP 14; TEMP 98.3; O2SAT 99
[2025-04-06] MEDS: INSULIN LANTUS (GLARGINE) 1 /0.01ml (100units/ml) SC SCH (13:45)
[2025-04-06] MEDS: SODIUM CHLORIDE 0.9% 1,000 ML IV SCH (13:53)
--- NOTE | 2025-04-06 15:38 | DVH ---
INDICATION: CKD TECHNIQUE: Multiple real-time sonographic images of the kidneys and bladder were obtained. COMPARISON: 2. FINDINGS: RIGHT kidney measures 11.4 cm in length. NO hydronephrosis. ANECHOIC CORTICAL LESION MEASURING 2.2 X 1.5 X 1.6 CM LEFT kidney measures 12 cm in length. NO hydronephrosis. ANECHOIC CORTICAL LESION LEFT KIDNEY MEASURING 3.4 X 2.5 X 3 CM No large intraluminal masses are seen in the bladder. PREVOID BLADDER VOLUME 449 ML. PATIENT COULD NOT VOID IMPRESSION: 1. 11 CM LONG RIGHT KIDNEY 12 CM LONG LEFT KIDNEY. 2. BILATERAL RENAL CYSTS
--- NOTE | 2025-04-06 19:37 | DVHPNRES ---
Progress Note Date Seen: Apr 06, 2025 Resident Creating Document: MATT COLIN RESIDENT Has the PT tested + for MRSA If YES, has PT been informed?: No Medical Necessity Reason Pt with a Central, PICC or Fol: No Subjective Review of Systems Leonardo Caldera is a 59-year-old male with past medical history of sleep apnea, diabetes, hypertension, hyperlipidemia, CHF, sleep apnea, seizures, COPD, home oxygen use 6 L, and chronic kidney disease. The patient presented to the ED withn3 day history of severe intermitent pelvic pain, urgency, frequency, and incontinence for the past couple of days prompting him to come to the hospital. The patient denies dysuria, fever, chill, nausea, vomit, diarrhea, u other symptoms. Today, the patient was examined at the bedside, vital signs and labs were reviewed HbA1C is 9.5s, WBC is 9.3x10e3. Patient reports feeling better, the pain has subside. Patient denies today nausea, vomit, fever or chills. PSA was requested. Urine culture is pending, we will follow up with the results. ROS: Constitutional: Patient with mild distress Eyes: No: Pain, Vision change, Conjunctivae inflammation, Eyelid inflammation, Other, Redness ENT: No: Ear pain, Ear discharge, Nose pain, Nose discharge, Nose congestion, Mouth pain, Mouth swelling, Throat pain, Throat swelling, Other Respiratory: No: Cough, Dry, Shortness of breath, SOB with excertion, Wheezing, Hemoptysis, Pleuritic Pain, Sputum, Wheezing, Other Cardiovascular: No: Chest Pain, Palpitations, Orthopnea, Paroxysmal Noc. Dyspnea, Edema, Lt Headedness, Other Gastrointestinal: No: Nausea, Vomiting, Abdominal Pain, Diarrhea, Constipation, Melena, Hematochezia, Other Genitourinary: Pelvic pain, Frequency, Incontinence; No Hematuria, No Retention, No Other Musculoskeletal: No: other, neck pain, shoulder pain, arm pain, back pain, hand pain, leg pain, foot pain Skin: No: Rash, Lesions, Jaundice, Bruising, Other Neurological: No: Weakness, Numbness, Incoordination, Change in speech, Confusion, Seizures, Other Allergies: Morphine (Verified Allergy, Unknown, 02/29/24) Objective vital signs Vital Sign Date Time Temp Pulse Resp B/P (MAP) Pulse Ox O2 Delivery O2 Flow Rate FiO2 7/22/25 13:00 98.3 76 14 102/63 (76) 99 98.3 04/06/25 08:00 Nasal Cannula* 6 44 Total Intake and Output 04/05/25 04/05/25 04/06/25 15:00 23:00 07:00 Intake Total 500 ml 500 ml Balance 500 ml 500 ml Examination General Appearance: Alert, Oriented X3, mild distress HEENT: Atraumatic, PERRLA Respiratory: Clear to auscultation, Normal air movement Cardiovascular: Regular rate, Normal S1, Normal S2, No murmurs Abdominal: Normal bowel sounds, Soft, depressible, pain in suprapuvic area to deep palpation, there is a retractable umbilical hernia, non tender. Costovertebral angle negative. Extremities: No clubbing, No cyanosis, No edema, Normal pulses Skin: No rashes, No breakdown, No significant lesion Neuro: Normal gait, Normal speech, Strength at 5/5 X4 ext Psych/Mental Status: Mental status NL, Mood NL laboratory and microbiology Laboratory Tests 04/06/25 06:15 Test 04/06/25 06:15 Range/Units Serum Glucose 222 H 74-106 mg/dL Problem List/Assessment/Plan Problem List/Assessment/Plan Assessment and Plan #Complicated urinary tract infection #Possible interstitial cystitis. IV hydration. IV Ceftriaxone 1g Bladder scan #Possible BPH PSA Bladder scan post void #Uncontrolled diabetes with hyperglycemia Insuline sliding scheme HbA1C #Hypertension Amlodipine 10 mg po qd #Hyperlipidemia Atorvastatin #CHF Supplemental oxygen as needed # COPD Supplemental oxygen as needed #Sleep apnea Bipap at home Goals of care discussed, more than 35 min spend with the patient. Case discussed with Dr. Branch Code status: Full code PCP: Dr. Love Medical plan discussed with patient and RN. Patient agrees with the plan. Plan discussed with: Patient My Orders My Orders Orders - MATT COILN Procedure Category Date Status Time Urine Bacterial NISHA 04/06/25 In Process Culture 11:28 Psa Total+% Free LAB 04/06/25 In Process 10:17 Kidney US 04/06/25 Resulted 10:21 MATT COLIN RESIDENT Apr 06, 2025 19:37
--- NOTE | 2025-04-06 19:50 | DVHDSRES ---
Discharge Summary Date of Admission Resident Creating Document: MATT COLIN RESIDENT Apr 05, 2025 at 17:28 Date of Discharge: Apr 06, 2025 Admitting Diagnosis Acute, complicated UTI Wounds: No wounds on admission Labs/Diagnostic Data: Laboratory Results Test 04/06/25 11:23 04/06/25 11:15 04/06/25 10:30 04/06/25 06:15 POC Glucose 285 mg/dl (70-106) Urine Opiates Screen Neg (NEGATIVE) Urine Fentanyl Screen Neg (NEGATIVE) Urine Barbiturates Screen Neg (NEGATIVE) Urine Phencyclidine Screen Neg (NEGATIVE) Urine Amphetamines Screen Neg (NEGATIVE) Urine Benzodiazepines Screen Neg (NEGATIVE) Urine Cocaine Screen Neg (NEGATIVE) Urine Cannabinoids Screen Neg (NEGATIVE) White Blood Count 9.3 10^3/uL (4.4-10.8) Red Blood Count 4.07 10^6/uL (4.5-5.90) Hemoglobin 12.4 g/dL (13.5-17.5) Hematocrit 36.8 % (41.0-53.0) Mean Corpuscular Volume 90.3 fL (80.0-100.0) Mean Corpuscular Hemoglobin 30.4 pg (28.0-32.0) Mean Corpuscular Hemoglobin Concent 33.7 g/dL (32.0-36.0) Red Cell Distribution Width 14.0 % (11.8-14.3) Platelet Count 251 10^3/uL (140-450) Mean Platelet Volume 9.1 fL (6.9-10.8) Neutrophils (%) (Auto) 72.0 % (37.0-80.0) Lymphocytes (%) (Auto) 18.8 % (10.0-50.0) Monocytes (%) (Auto) 8.5 % (0.0-12.0) Eosinophils (%) (Auto) 0.4 % (0.0-7.0) Basophils (%) (Auto) 0.3 % (0.0-2.0) Neutrophils # (Auto) 6.7 10 ^3/uL (1.6-8.6) Lymphocytes # (Auto) 1.8 10 ^3/uL (0.4-5.4) Monocytes # (Auto) 0.8 10 ^3/uL (0-1.3) Eosinophils # (Auto) 0 10 ^3/uL (0-0.8) Basophils # (Auto) 0 10 ^3/uL (0-0.2) Nucleated Red Blood Cells 0.0 % Sodium Level 140 mmol/L (136-145) Potassium Level 3.9 mmol/L (3.5-5.1) Chloride Level 102 mmol/L (98-107) Carbon Dioxide Level 26 mmol/L (20-31) Anion Gap 12 (5-15) Blood Urea Nitrogen 14 mg/dL (9-23) Creatinine 1.30 mg/dL (0.700-1.30) Glomerular Filtration Rate Calc 63 mL/min (>90) BUN/Creatinine Ratio 10.8 (10.0-20.0) Serum Glucose 222 mg/dL (74-106) Calcium Level 10.3 mg/dL (8.7-10.4) Total Bilirubin 0.5 mg/dL (0.2-1.0) Aspartate Amino Transferase (AST) 13 U/L (13-40) Alanine Aminotransferase (ALT) 23 U/L (7-40) Alkaline Phosphatase 99 U/L (46-116) B-Type Natriuretic Peptide 2.76 pg/mL (0-100) Total Protein 7.1 g/dL (5.7-8.2) Albumin 4.6 g/dL (3.2-4.8) Test 04/05/25 16:20 04/05/25 14:25 Urine Color Colorless (Yellow) Urine Clarity Clear (Clear) Urine pH 5.5 (5.0-9.0) Urine Specific [place] 1.032 (1.001-1.035) Urine Protein Negative (Negative) Urine Ketones 1+ (Negative) Urine Blood 3+ /uL (Negative) Urine Nitrite Negative (Negative) Urine Bilirubin Negative (Negative) Urine Urobilinogen Normal mg/dL (Negative) Urine Leukocyte Esterase Negative /uL (Negative) Urine RBC 115 /hpf (0 - 3) Urine Microscopic WBC 7 /HPF (0-3) Urine Squamous Epithelial Cells Few /hpf (<5) Urine Bacteria Few /hpf (None Seen) Urine Glucose 4+ mg/dL (Normal) Hemoglobin A1c 9.5 % A1C (<5.7) Other Laboratory Tests 04/06/25 06:15 Brief Hx & Hospital Course: Leonardo Caldera is a 59-year-old male with past medical history of sleep apnea, diabetes, hypertension, hyperlipidemia, CHF, sleep apnea, seizures, COPD, home oxygen use 6 L, and chronic kidney disease. The patient presented to the ED withn3 day history of severe intermitent pelvic pain, urgency, frequency, and incontinence for the past couple of days prompting him to come to the hospital. The patient denies dysuria, fever, chill, nausea, vomit, diarrhea, u other symptoms. The patient was examined at the bedside, vital signs and labs were reviewed HbA1C is 9.5s, WBC is 9.3x10e3. Patient reports feeling better, the pain has subside. Patient denies today nausea, vomit, fever or chills. PSA was requested. Urine culture was requested. Today, the states they want to leave the hospital Against Medical Advice (AMA). Patient encouraged to stay for further treatment/stabilization. Patient advised of the risks and benefits of leaving AMA. Patient verbalized understanding. Patient encouraged to return to the ER if symptoms do not improve or worsen. ROS: Could not be performed patient left AMA. Physical Exam: Could not be performed patient left AMA. Assessments during admission: #Complicated urinary tract infection #Possible interstitial cystitis #Possible BPH #Uncontrolled diabetes with hyperglycemia #CKD stage III #Hypertension #Hyperlipidemia #CHF # COPD #Sleep apnea Discharge plan: Could not be performed patient left AMA. Condition at Discharge: Undetermined Final Diagnosis/Problems List #Complicated urinary tract infection #Possible interstitial cystitis #Possible BPH #Uncontrolled diabetes with hyperglycemia #CKD stage III #Hypertension #Hyperlipidemia #CHF # COPD #Sleep apnea Discharge Disposition: AMA SNF Discharge Will this Physician continue t: No Discharge Instruct/Medications Diet: See Comment Diet comment: Patient left AMA. Activity comment: Patient left AMA. Follow Up/Referral: Patient left AMA. Scheduled Amlodipine Besylate (Amlodipine Besylate), 1 TAB PO DAILY, (Reported) Aspirin (Aspirin Low Dose), 1 TAB PO DAILY, (Reported) Atorvastatin Calcium (Atorvastatin Calcium), 1 TAB PO HS, (Reported) Canagliflozin (Invokana), 300 MG OR DAILY, (Reported) Furosemide (Lasix), 1 TAB PO DAILY, (Reported) Gabapentin (Gabapentin), 1 CAP PO TID, (Reported) Lisinopril (Lisinopril), 10 MG PO DAILY, (Reported) Metoprolol Tartrate (Metoprolol Tartrate), 50 MG PO DAILY, (Reported) Omeprazole Magnesium (Omeprazole), 20 MG PO DAILY, (Reported) Sertraline Hcl (Sertraline Hcl), 1 TAB PO DAILY, (Reported) Discharge Statement: "Patient left AMA, he was advised to return to the ER or call 911 if any headaches, dizziness, shortness of breath, chest pain, abdominal pain, bleeding, fevers, or worsening of medical condition. Patient agree to understanding the risks of leaving AMA. ASSESSMENT ASSESSMENT Assessment MATT COLIN RESIDENT Apr 06, 2025 19:50
[2025-04-07 11:07] LABS: Prostate Specific Antigen 10.2 ng/mL (0.0-4.0)
== END 2025-04-06 15:30 | disposition left against medical advice (07) | DRG 463 ==
LOC: EDBD 13:05 → ER 13:12 → OVERFLOW 17:28 → WEST WING 21:09
PROVIDERS: ADMIT Student in an Organized Health Care Education/Training Program; ATTEND Student in an Organized Health Care Education/Training Program
PROC: 5A09357 Assistance with Respiratory Ventilation, Less than 24 Consecutive Hours, Continuous Positive Airway Pressure (ICD-10-PCS; principal; 2025-04-06)
DX: N30.10 Interstitial cystitis (chronic) without hematuria (principal); E11.22 Type 2 diabetes mellitus with diabetic chronic kidney disease; I50.9 Heart failure, unspecified; I13.0 Hypertensive heart and chronic kidney disease with heart failure and stage 1 through stage 4 chronic kidney disease, or unspecified chronic kidney disease; J96.11 Chronic respiratory failure with hypoxia; R16.0 Hepatomegaly, not elsewhere classified; E11.65 Type 2 diabetes mellitus with hyperglycemia; E78.5 Hyperlipidemia, unspecified; N18.30 Chronic kidney disease, stage 3 unspecified; G47.30 Sleep apnea, unspecified; Z53.29 Procedure and treatment not carried out because of patient's decision for other reasons; J44.9 Chronic obstructive pulmonary disease, unspecified; K42.9 Umbilical hernia without obstruction or gangrene; Z96.652 Presence of left artificial knee joint; K76.0 Fatty (change of) liver, not elsewhere classified; Z88.5 Allergy status to narcotic agent; Z79.82 Long term (current) use of aspirin; Z79.4 Long term (current) use of insulin; Z79.85 Long-term (current) use of injectable non-insulin antidiabetic drugs; N40.1 Benign prostatic hyperplasia with lower urinary tract symptoms
CPT/HCPCS: 36415; 74176; 76775; 80048; 80053; 80307; 81001; 82962; 83036; 83880; 84154; 85025; 87086; 87088; 87186; 94640; 94660; 96360; G0378; J1815; J2405